=== PATIENT | female | born 1995 | race Caucasian/White ===

== ENCOUNTER 2017-05-13 09:41 | Emergency (ER) | payer OTHER ==
[2017-05-13 10:07] VITALS: BP 109/65
--- NOTE | 2017-05-13 10:19 | UC ---
UC General HPI - HPI Summary HPI Summary: Pt with h/o hemorrhoids. Pt states currently has one approx 5 days. Pt has been using prep H. states gets short term relief, but still present. Pt states sttols are firm - taking fiber. Pt denies bleeding. No rectal trauma. no h/o rectal fistulas, abscess. No oral anagelsia taken. Pt's medications reviewed this visit - History of Current Complaint Chief Complaint: UCGI Stated Complaint: PERSONAL Time Seen by Provider: 05/13/17 10:08 Hx Obtained From: Patient Hx Last Menstrual Period: about one month Onset/Duration: Gradual Onset, Lasting Days Timing: Constant Onset Severity: Mild Current Severity: Moderate - Allergy/Home Medications Allergies/Adverse Reactions: Allergies Allergy/AdvReac Type Severity Reaction Status Date / Time No Known Allergies Allergy Verified 05/13/17 10:07 Home Medications: Home Medications Phenylephrine-Mineral Oil-Sandro [Preparation H] 1 oin OK SEE INSTRUCTIONS PRN [History Confirmed 05/13/17] PMH/Surg Hx/FS Hx/Imm Hx Previously Healthy: Yes GI/ History: Other Other GI/ History: hemorrhoid - Surgical History Surgical History: Yes Surgery Procedure, Year, and Place: growth removed from buttock 2014 - Social History Alcohol Use: Occasionally Substance Use Type: None Smoking Status (MU): Never Smoked Tobacco Review of Systems Constitutional: Negative Gastrointestinal: Other - hemorrhoid All Other Systems Reviewed And Are Negative: Yes Physical Exam Triage Information Reviewed: Yes Appearance: Well-Appearing, No Pain Distress, Well-Nourished Vital Signs: Initial Vital Signs Temp 98.9 F 05/13/17 10:00 Pulse 72 05/13/17 10:00 Resp 18 05/13/17 10:00 BP 109/65 05/13/17 10:00 Vital Signs Reviewed: Yes Eyes: Negative: Discharge Respiratory: Positive: No respiratory distress, No accessory muscle use Abdomen Description: Positive: Nontender, No Organomegaly, Soft, Other: - Pt with 1 hemorrhoid, 5 o'clock not thrombised no erythema No fluctance, induration, abscess or fissure noted on digital exam No blood Bowel Sounds: Positive: Present Musculoskeletal Exam: Normal Neurological Exam: Normal Psychological Exam: Normal Skin Exam: Normal Course/Dx - Course Course Of Treatment: Pt with mildly tender, non-thrombosed hemorrhoid. Will give Anusol HC. recommend sitz baths. colace. motrin. suregery referral - Differential Dx - Multi-Symptom Provider Diagnoses: hemorrhoid Discharge - Discharge Plan Condition: Stable Disposition: HOME Prescriptions: Docusate Sodium [Colace] 100 mg PO BID PRN #30 cap PRN Reason: Constipation Hydrocortisone SUPP* [Anusol HC Supp*] 25 mg OK BID #10 supp Patient Education Materials: Hemorrhoids (ED) Referrals: Brendon Almanzar MD [Medical Doctor] - Additional Instructions: - stay well hydrated. Drink plenty of non-alcoholic, non-caffinated beverages - Use stool softner as directed - if able, sitz baths 2-3 times a day - apply prescription hemorrhoid ointment as instructed - if your symptoms persist, okay to contact the surgeon you have referral for - okay to alternate ibuprofen (advil, motrin) and tylenol every 3 hours for pain. Take with food. Do NOT take for more than 4-5 days. - contact your doctor, student health, the emergency department or return with any questions or concerns
== END 2017-05-13 10:47 | disposition home or self-care (01) ==
LOC: UCCORT 09:41
DX: K64.9 Unspecified hemorrhoids (principal)
CPT/HCPCS: 99202; G0463